=== PATIENT | female | born 1960 | race Two or more races ===

== ENCOUNTER 2018-02-06 11:15 | Emergency (ER) | payer OTHER ==
[~2018-02-06] VITALS: Ht 165.1 cm; Wt 88.5 kg
[2018-02-06 11:15] VITALS: BP 151/87
== END 2018-02-06 11:41 | disposition home or self-care (01) ==
LOC: ER 11:23
DX: H60.591 Other noninfective acute otitis externa, right ear (principal)
CPT/HCPCS: A4606; Z7610